=== PATIENT | male | born 1945 | race Caucasian/White ===

== ENCOUNTER 2020-02-16 12:19 | Emergency (ER) | payer OTHER ==
[2020-02-16] MEDS ORDERED: Diphtheria,Pertussis(Acell),Tetanus Vaccine 0.5 ML Syringe IM ONE (12:50)
[2020-02-16] MEDS ORDERED: ceFAZolin 1 GM Vial IVPUSH ONE (13:10)
--- NOTE | 2020-02-16 13:21 | EDM.PDOC ---
ED HPI GENERAL MEDICAL PROBLEM - General Chief Complaint: General Stated Complaint: R) pinky finger laceration Time Seen by Provider: 02/16/20 13:05 Source of Information: Reports: Patient History Limitations: Reports: No Limitations - History of Present Illness INITIAL COMMENTS - FREE TEXT/NARRATIVE: This patient is a 75 year old male that presents to the ER. Patient reports that he was working on [employer] and had finger between rear and gas takn, when pulled down and it grabbed finger. Patient reports having cut finger to the right 5th digit. Onset: Today, Sudden Onset Date: 02/16/20 Location: Reports: Upper Extremity, Right Severity: Moderate Improves with: Reports: None Worsens with: Reports: None Associated Symptoms: Reports: No Other Symptoms Right Finger-Little Pain Score (Numeric/FACES): 5 - Related Data Allergies Allergy/AdvReac Type Severity Reaction Status Date / Time No Known Allergies Allergy Verified 02/16/20 12:30 Home Meds: Home Meds Enalapril Maleate 5 mg PO DAILY 02/16/20 [History] atorvaSTATin Calcium [Atorvastatin Calcium] 80 mg PO DAILY 02/16/20 [History] metFORMIN HCl [Metformin HCl] 1,000 mg PO BID 02/16/20 [History] Past Medical History HEENT History: Reports: Impaired Vision Cardiovascular History: Reports: High Cholesterol, Hypertension Endocrine/Metabolic History: Reports: Diabetes, Type II - Past Surgical History HEENT Surgical History: Reports: Tonsillectomy Cardiovascular Surgical History: Reports: None Social & Family History - Family History Family Medical History: Noncontributory - Tobacco Use Smoking Status *Q: Never Smoker Second Hand Smoke Exposure: No - Caffeine Use Caffeine Use: Reports: None - Recreational Drug Use Recreational Drug Use: No ED ROS GENERAL - Review of Systems Review Of Systems: See Below Constitutional: Reports: No Symptoms HEENT: Reports: No Symptoms Respiratory: Reports: No Symptoms Cardiovascular: Reports: No Symptoms Endocrine: Reports: No Symptoms GI/Abdominal: Reports: No Symptoms : Reports: No Symptoms Musculoskeletal: Reports: Other (right 5th finger pain) Skin: Reports: Wound (right 5th finger open wound) Neurological: Reports: No Symptoms Psychiatric: Reports: No Symptoms Hematologic/Lymphatic: Reports: No Symptoms Immunologic: Reports: No Symptoms ED EXAM, GENERAL - Physical Exam Exam: See Below Exam Limited By: No Limitations General Appearance: Alert, WD/WN, No Apparent Distress Respiratory/Chest: No Respiratory Distress, Lungs Clear, Normal Breath Sounds, No Accessory Muscle Use Cardiovascular: Normal Peripheral Pulses, Regular Rate, Rhythm, No Edema, No Gallop, No JVD, No Murmur, No Rub Peripheral Pulses: 2+: Radial (L), Radial (R) Extremities: Normal Range of Motion, Normal Capillary Refill (except right 5th digit), Other (Pain, tenderness right 5th digit tip at amputated site. Sensation intact. Neurovascular intact. ) Neurological: Alert, Oriented Psychiatric: Normal Affect, Normal Mood Skin Exam: Warm, Dry, Normal Color, No Rash, Wound/Incision (distal tip amputation with visible bone to the right 5th digit. Nail gone. Clean amputation straight down. Hands and finger have automobile oil/dirt.) ED GENERAL MEDICAL PROCEDURES - Additional/Other Procedure(s) Other (Free Text) Procedure(s): Wound irrigated with NS, bone visible on exam. Telfa applied, coban, jordan wrap. No complications. No bleeding. Course - Vital Signs Last Recorded V/S: Last Vital Signs Temp 95.9 F L 02/16/20 12:39 Pulse 59 L 02/16/20 12:39 Resp 16 02/16/20 12:39 BP 93/49 L 02/16/20 12:39 Pulse Ox 92 L 02/16/20 12:39 - Orders/Labs/Meds Orders: Active Orders 24 hr Category Date Time Status Vaccines to be Administered [RC] PER UNIT ROUTINE Care 02/16/20 12:50 Active Hand Comp Min 3V Rt [CR] Stat Exams 02/16/20 13:03 Taken Meds: Medications Discontinued Medications Generic Name Dose Route Start Last Admin Trade Name Emmanuel PRN Reason Stop Dose Admin Cefazolin Sodium 1 gm 02/16/20 13:10 02/16/20 13:24 Ancef IVPUSH 02/16/20 13:11 1 gm ONETIME ONE Administration Diphtheria/Tetanus/Acell Pertussis 0.5 ml 02/16/20 12:50 02/16/20 13:00 Adacel IM 02/16/20 12:51 0.5 ml .ONCE ONE Administration - Radiology Interpretation Free Text/Narrative:: rIGHT HAND: rIGHT 5TH DIGIT TIP AMPUTATION SOFT TISSUE INJURY, POSSIBLE DISTAL TIP FRACTURE/AMPUTATION. - Re-Assessments/Exams Free Text/Narrative Re-Assessment/Exam: 02/16/20 13:[address] Espinoza hand surgeon at [facility]. He has accepted the patient. Departure - Departure Time of Disposition: 13:19 Disposition: Home, Self-Care 01 Condition: Fair Clinical Impression: Finger amputation, traumatic Qualifiers: Encounter type: initial encounter Qualified Code(s): S68.119A - Complete traumatic metacarpophalangeal amputation of unspecified finger, initial encounter - Discharge Information *PRESCRIPTION DRUG MONITORING PROGRAM REVIEWED*: Not Applicable *COPY OF PRESCRIPTION DRUG MONITORING REPORT IN PATIENT OLGA: Not Applicable Referrals: PCP,None [Primary Care Provider] - Forms: ED Department Discharge Additional Instructions: Go Directly to [facility] ER: [facility] DO NOT EAT OR DRINK ANYTHING Dr. Espinoza is the hand surgeon who accepted transfer To be seen in ER first Sepsis Event Note (ED) - Evaluation Sepsis Screening Result: No Definite Risk - Focused Exam Vital Signs: Vital Signs Temp Pulse Resp BP Pulse Ox 02/16/20 12:39 95.9 F L 59 L 16 93/49 L 92 L - My Orders Last 24 Hours: My Active Orders 02/16/20 12:50 Vaccines to be Administered [RC] PER UNIT ROUTINE 02/16/20 13:03 Hand Comp Min 3V Rt [CR] Stat - Assessment/Plan Last 24 Hours: My Active Orders 02/16/20 12:50 Vaccines to be Administered [RC] PER UNIT ROUTINE 02/16/20 13:03 Hand Comp Min 3V Rt [CR] Stat Plan: PLEASE SEE RN NOTE FOR PFSH. Patient is being transferred to [facility]. Risk vs benefits explained and accepted by patient. Going Private vehicle with IV intact. Risk are mvc, bleeding from site, pain. The risk of staying in [place] is infection, not good closure. The benefits of transfer are higher level of care, surgical cleaning, hand surgeon, plastic surgeon for flap. The benefits of staying in [place] are close to home.
== END 2020-02-16 13:41 ==
LOC: CC.ED 12:19
DX: S68.626A Partial traumatic transphalangeal amputation of right little finger, initial encounter (principal); I10 Essential (primary) hypertension; E78.00 Pure hypercholesterolemia, unspecified; E11.9 Type 2 diabetes mellitus without complications; Z23 Encounter for immunization; Z79.84 Long term (current) use of oral hypoglycemic drugs; Z79.899 Other long term (current) drug therapy; W20.8XXA Other cause of strike by thrown, projected or falling object, initial encounter; Y92.89 Other specified places as the place of occurrence of the external cause; Y99.0 Civilian activity done for income or pay
CPT/HCPCS: 73130; 90471; 90715; 96374; 99283; 99284; J0690